=== PATIENT | female | born 1975 | race Caucasian/White ===

== ENCOUNTER 2022-07-20 13:26 | Inpatient (IN) | payer OTHER, SELFPAY ==
--- NOTE | ~2022-07-20 | CT_ITS ---
EXAMINATION: CT angio head neck CLINICAL INFORMATION: Hypertensive. Word finding difficulty. COMPARISON: No relevant prior imaging. TECHNIQUE: [employer] images were obtained. A CT angiogram of the head and neck was performed in the arterial phase after the intravenous administration of 70 mL Omnipaque 350. Pre and delayed postcontrast images of the head were also obtained. 3D images were processed on an independent workstation under concurrent supervision. Arterial stenoses are measured in accordance with NASCET criteria or similar method if applicable. This CT examination was performed using dose optimization techniques as appropriate, including one or more of the following: Automated exposure control, iterative reconstruction, and adjustment of technique factors (mA and/or kVp) according to patient size (this includes techniques or standardized protocols for targeted exams where dose is matched to indication/reason for exam). Fleischner Society criteria for the followup of incidental pulmonary nodules was implemented if appropriate. Total exam dose-length product 2352 mGy-cm FINDINGS: Head: There is no acute intracranial hemorrhage or abnormal extra-axial collection. Postcontrast images reveal no abnormal intracranial mass or enhancement. There is no intracranial mass effect or midline shift. Lateral and third ventricles are normal. No hydrocephalus. Arredondo-white matter differentiation is grossly preserved and there is no evidence of acute territorial infarct. The calvarium and skull base are intact. Mastoid air cells and middle ear cavities are well aerated. No active paranasal sinus disease. CT angiogram neck: The aortic arch apex is normal. Origins of the major aortic branches are widely patent. Common carotid arteries and carotid bifurcations are normal. No stenosis of the extracranial internal carotid arteries. The cervical segments of the vertebral arteries are patent. CT angiogram head: Intracranial internal carotid arteries are patent. The intradural vertebral artery segments and basilar artery are patent. Anterior, middle, and posterior cerebral artery complexes are normal. No intracranial large vessel occlusion. No identifiable aneurysm or high flow vascular lesion. The timing of the contrast injection provides adequate opacification of the dural venous sinuses which are patent. Other: Soft tissues of the neck including the thyroid gland are normal. Lung apices are clear. There is no acute osseous finding. No worrisome lytic or blastic osseous lesion. CT/CT angio head neck IMPRESSION: Normal CT angiogram of the head and neck. No stenosis of the cervical carotid or vertebral arteries. No intracranial large vessel occlusion. No evidence of acute territorial infarct or hemorrhage. No abnormal intracranial mass or enhancement.
--- NOTE | 2022-07-20 13:36 | ED.NEUROSD ---
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 At this time, patient states that the numbness in the right upper extremity that she had has completely resolved and now states that she is having some numbness in the left upper extremity and then during the conversation says that she has some left lower extremity numbness at the lateral aspect. She denies any prescription medications and stop taking her diabetic medication a couple of years ago. Related Data Allergies Allergy/AdvReac Type Severity Reaction Status Date / Time Penicillins Allergy Hives Verified 07/20/22 13:51 Sulfa (Sulfonamide Allergy Hives Verified 07/20/22 13:51 Antibiotics) PMFSH Social History Social History Smoked in Last 30 Days: No Use of substances other than those prescribed or required for medical reasons: No Advance Directives: No Advance Directives Information Provided: Yes Physical Exam Vital Signs: Vital Signs: Last Vital Signs Temp 97.8 F 07/20/22 14:15 Pulse 96 07/20/22 18:50 Resp 16 07/20/22 18:50 BP 159/89 H 07/20/22 18:50 Pulse Ox 96 07/20/22 18:50 O2 Del Method Room Air 07/20/22 18:50 BMI result Body Mass Index 25.1 Medications Administered Discontinued Medications Generic Name Dose Route Start Last Admin Trade Name Freq PRN Reason Stop Dose Admin Acetaminophen 975 mg 07/20/22 17:51 07/20/22 18:01 Acetaminophen 325 Mg Tablet PO 07/20/22 17:52 975 mg ONCE ONE Administration Iohexol 100 ml 07/20/22 15:19 07/20/22 15:19 Iohexol 350 Mg/Ml 100 Ml Infus..Btl IV 07/20/22 15:20 70 ml ONCE ONE Administration Labetalol HCl 5 mg 07/20/22 14:04 07/20/22 14:12 Labetalol Hcl 100 Mg/20 Ml Vial IVPUSH 07/20/22 14:05 5 mg ONCE ONE Administration Labetalol HCl 5 mg 07/20/22 17:09 07/20/22 18:01 Labetalol Hcl 100 Mg/20 Ml Vial IVPUSH 07/20/22 17:10 5 mg ONCE ONE Administration Medical Decision Making Medical Decision Making MDM Narrative: 46-year-old female who presents initially as a stroke alert, however given the changing sides of her symptoms I have low clinical suspicion and think that this is likely a component of anxiety/stress as patient reports significant work and home related stress. Of note, she does have risk factors such as diabetes and on initial evaluation by EMS is noted to have elevated blood pressure. We will fully workup medical reasons for her symptoms and that will include brain imaging studies, however very low clinical suspicion for neurologic etiology. I reviewed all investigations, my interpretation is that patient's symptoms were associated with a hypertensive crisis episode as well as hyperglycemia. I discussed all results and plans with the patient, she did receive in respond well to labetalol. Patient's symptoms have completely resolved and she states that she currently has a headache. 1751: I discussed the case with the inpatient hospitalist who accepts admission. Differential Diagnosis Please see the discussion above Consult Healthcare Provider Management of the patient was discussed with: Hospitalist Please see the discussion above Lab Data Please see the discussion above 07/20/22 14:23 07/20/22 14:23 Labs: Lab Results 07/20/22 07/20/22 07/20/22 Range/Units 14:23 14:23 14:23 WBC 10.9 H (4.8-10.8) X10*3/uL RBC 4.10 L (4.20-5.50) X10*6/uL Hgb 11.6 L (12.0-16.0) g/dl Hct 34.5 L (37.0-47.0) % MCV 84.1 (80.0-98.0) fL MCH 28.3 (27.0-33.0) pg MCHC 33.6 (31.0-35.0) g/dl RDW 12.1 (11.0-16.0) % Plt Count 303 (160-400) X10*3/uL MPV 11.3 (9.4-12.3) fL Immature Gran % (Auto) 0.3 (0.0-0.4) % Neut % (Auto) 74.8 H (45-73) % Lymph % (Auto) 19.0 L (20-40) % [place] % (Auto) 5.1 (2-11) % Eos % (Auto) 0.5 (0-4) % Baso % (Auto) 0.3 (0-2) % Lymph # (Auto) 2.1 (1.2-4.9) X10*3/uL [place] # (Auto) 0.6 (0.1-1.2) X10*3/uL Eos # (Auto) 0.1 (0.0-0.4) X10*3/uL Baso # (Auto) 0.0 (0.0-0.2) X10*3/uL Abs Immat Gran (auto) 0.03 (0.00-0.03) X10*3/uL Absolute Neuts (auto) 8.2 (2.0-8.3) x10*3/uL Absolute Nucleated RBC 0.000 (0.0-0.012) X10*3/uL Nucleated RBC % (auto) 0.0 (0.0-0.2) /100WBC PT 10.3 (10.0-13.1) SEC INR 0.9 (0.9-1.1) Sodium 136 (135-145) mmol/L Potassium 4.4 (3.3-5.1) mmol/L Chloride 103 (96-108) mmol/L Carbon Dioxide 23 (22-29) mmol/L Anion Gap 14 (12-20) BUN 38 H (9-16) mg/dL Creatinine 1.38 (0.5-1.4) mg/dL Estim Creat Clear Calc 49.0 Estimated GFR 41 Random Glucose 343 H (60-115) mg/dL Estimat Average Glucose mg/dL Hemoglobin A1c % % Calcium 9.4 (8.4-10.2) mg/dL Total Bilirubin 0.4 (0.0-1.0) mg/dL AST 8 (5-31) U/L ALT 10 (0-31) U/L Alkaline Phosphatase 114 (39-117) U/L Troponin I High Sens (<3.5-17.0) ng/L Total Protein 6.2 L (6.5-8.0) g/dL Albumin 3.3 L (3.5-5.0) g/dL Urine Color Urine Appearance Urine pH (5.0-9.0) Ur Specific [place] (1.005-1.025) Urine Protein (Neg-Trace) mg/dL Urine Glucose (UA) (Negative) mg/dL Urine Ketones (Negative) mg/dL Urine Blood (Negative) Urine Nitrite (Negative) Ur Leukocyte Esterase (Negative) Urine RBC (0-2) /HPF Urine WBC (0-5) /HPF Ur Squamous Epith Cells (0-2) /HPF Urine Bacteria (None Seen) Hyaline Casts (0-2) /LPF Urine Opiates Screen (Not Detect) Urine Fentanyl Screen (Not Detect) Ur Barbiturates Screen (Not Detect) Ur Phencyclidine Scrn (Not Detect) Ur Amphetamines Screen (Not Detect) U Benzodiazepines Scrn (Not Detect) Urine Cocaine Screen (Not Detect) U Marijuana (THC) Screen (Not Detect) 07/20/22 07/20/22 07/20/22 Range/Units 14:23 14:23 16:37 WBC (4.8-10.8) X10*3/uL RBC (4.20-5.50) X10*6/uL Hgb (12.0-16.0) g/dl Hct (37.0-47.0) % MCV (80.0-98.0) fL MCH (27.0-33.0) pg MCHC (31.0-35.0) g/dl RDW (11.0-16.0) % Plt Count (160-400) X10*3/uL MPV (9.4-12.3) fL Immature Gran % (Auto) (0.0-0.4) % Neut % (Auto) (45-73) % Lymph % (Auto) (20-40) % [place] % (Auto) (2-11) % Eos % (Auto) (0-4) % Baso % (Auto) (0-2) % Lymph # (Auto) (1.2-4.9) X10*3/uL [place] # (Auto) (0.1-1.2) X10*3/uL Eos # (Auto) (0.0-0.4) X10*3/uL Baso # (Auto) (0.0-0.2) X10*3/uL Abs Immat Gran (auto) (0.00-0.03) X10*3/uL Absolute Neuts (auto) (2.0-8.3) x10*3/uL Absolute Nucleated RBC (0.0-0.012) X10*3/uL Nucleated RBC % (auto) (0.0-0.2) /100WBC PT (10.0-13.1) SEC INR (0.9-1.1) Sodium (135-145) mmol/L Potassium (3.3-5.1) mmol/L Chloride (96-108) mmol/L Carbon Dioxide (22-29) mmol/L Anion Gap (12-20) BUN (9-16) mg/dL Creatinine (0.5-1.4) mg/dL Estim Creat Clear Calc Estimated GFR Random Glucose (60-115) mg/dL Estimat Average Glucose 338 mg/dL Hemoglobin A1c % 13.4 % Calcium (8.4-10.2) mg/dL Total Bilirubin (0.0-1.0) mg/dL AST (5-31) U/L ALT (0-31) U/L Alkaline Phosphatase (39-117) U/L Troponin I High Sens < 2.7 (<3.5-17.0) ng/L Total Protein (6.5-8.0) g/dL Albumin (3.5-5.0) g/dL Urine Color Yellow Urine Appearance Clear Urine pH 6.0 (5.0-9.0) Ur Specific [place] >= 1.030 H (1.005-1.025) Urine Protein 300 (3+) H (Neg-Trace) mg/dL Urine Glucose (UA) 500 H (Negative) mg/dL Urine Ketones Negative (Negative) mg/dL Urine Blood Trace H (Negative) Urine Nitrite Negative (Negative) Ur Leukocyte Esterase Moderate (2+) H (Negative) Urine RBC 3-5 H (0-2) /HPF Urine WBC >50 H (0-5) /HPF Ur Squamous Epith Cells 6-10 (0-2) /HPF Urine Bacteria 1+ (None Seen) Hyaline Casts 6-10 (0-2) /LPF Urine Opiates Screen (Not Detect) Urine Fentanyl Screen (Not Detect) Ur Barbiturates Screen (Not Detect) Ur Phencyclidine Scrn (Not Detect) Ur Amphetamines Screen (Not Detect) U Benzodiazepines Scrn (Not Detect) Urine Cocaine Screen (Not Detect) U Marijuana (THC) Screen (Not Detect) 07/20/22 Range/Units 16:37 WBC (4.8-10.8) X10*3/uL RBC (4.20-5.50) X10*6/uL Hgb (12.0-16.0) g/dl Hct (37.0-47.0) % MCV (80.0-98.0) fL MCH (27.0-33.0) pg MCHC (31.0-35.0) g/dl RDW (11.0-16.0) % Plt Count (160-400) X10*3/uL MPV (9.4-12.3) fL Immature Gran % (Auto) (0.0-0.4) % Neut % (Auto) (45-73) % Lymph % (Auto) (20-40) % [place] % (Auto) (2-11) % Eos % (Auto) (0-4) % Baso % (Auto) (0-2) % Lymph # (Auto) (1.2-4.9) X10*3/uL [place] # (Auto) (0.1-1.2) X10*3/uL Eos # (Auto) (0.0-0.4) X10*3/uL Baso # (Auto) (0.0-0.2) X10*3/uL Abs Immat Gran (auto) (0.00-0.03) X10*3/uL Absolute Neuts (auto) (2.0-8.3) x10*3/uL Absolute Nucleated RBC (0.0-0.012) X10*3/uL Nucleated RBC % (auto) (0.0-0.2) /100WBC PT (10.0-13.1) SEC INR (0.9-1.1) Sodium (135-145) mmol/L Potassium (3.3-5.1) mmol/L Chloride (96-108) mmol/L Carbon Dioxide (22-29) mmol/L Anion Gap (12-20) BUN (9-16) mg/dL Creatinine (0.5-1.4) mg/dL Estim Creat Clear Calc Estimated GFR Random Glucose (60-115) mg/dL Estimat Average Glucose mg/dL Hemoglobin A1c % % Calcium (8.4-10.2) mg/dL Total Bilirubin (0.0-1.0) mg/dL AST (5-31) U/L ALT (0-31) U/L Alkaline Phosphatase (39-117) U/L Troponin I High Sens (<3.5-17.0) ng/L Total Protein (6.5-8.0) g/dL Albumin (3.5-5.0) g/dL Urine Color Urine Appearance Urine pH (5.0-9.0) Ur Specific [place] (1.005-1.025) Urine Protein (Neg-Trace) mg/dL Urine Glucose (UA) (Negative) mg/dL Urine Ketones (Negative) mg/dL Urine Blood (Negative) Urine Nitrite (Negative) Ur Leukocyte Esterase (Negative) Urine RBC (0-2) /HPF Urine WBC (0-5) /HPF Ur Squamous Epith Cells (0-2) /HPF Urine Bacteria (None Seen) Hyaline Casts (0-2) /LPF Urine Opiates Screen Not Detected (Not Detect) Urine Fentanyl Screen Not Detected (Not Detect) Ur Barbiturates Screen Not Detected (Not Detect) Ur Phencyclidine Scrn Not Detected (Not Detect) Ur Amphetamines Screen Not Detected (Not Detect) U Benzodiazepines Scrn Not Detected (Not Detect) Urine Cocaine Screen Not Detected (Not Detect) U Marijuana (THC) Screen Not Detected (Not Detect) Independent Interpretation Interpretation: Normal sinus rhythm, HR-91, right bundle branch block, [place] within normal limits, QRS-126, QTC 501 Radiology Impression Radiologist Impression: My interpretation is in agreement with radiology's impression Chronic Conditions Patient?s care impacted by: Diabetes and Hypertension NIH Stroke Scale Internal: Initial- Upon Arrival Level of Consciousness: Alert Level of Consciousness Questions: Answers both questions correctly Level of Consciousness Commands: Performs both tasks correctly Best Gaze: Normal Visual: No visual loss Facial Palsy: Normal Motor Arm (Right): No drift Motor Arm (Left): No drift Motor Leg (Right): No drift Motor Leg (Left): No drift Limb Ataxia: Absent Sensory: Normal Best Language: No aphasia Dysarthia: Normal Extinction and Inattention: No abnormality Score: 0 Discharge Plan Discharge Clinical Impression: Hypertensive crisis, Hyperglycemia due to diabetes mellitus, Neurological symptoms Patient Disposition: Admitted As Inpatient
--- NOTE | 2022-07-20 13:41 | ECG_ITS ---
Test Reason : hyperglycemia Blood Pressure : / mmHG Vent. Rate : 091 BPM Atrial Rate : 091 BPM P-R Int : 142 ms QRS Dur : 126 ms QT Int : 408 ms P-R-T Axes : 041 006 -04 degrees QTc Int : 501 ms Normal sinus rhythm Right bundle branch block Inferior infarct , age undetermined Abnormal ECG No previous ECGs available Referred By: Anjali Dooley Electronically Signed By:Jose Lofton
[2022-07-20 13:44] VITALS: BP 174/113; BP 212/111; PULSE 80; PULSE 89; RESP 16; TEMP 37.1; O2SAT 100; BMI 25.1
[2022-07-20] MEDS: Labetalol HCL 100 MG/20 ML VIAL IVPUSH ×2 (14:12→18:01)
[2022-07-20 14:15] VITALS: BP 198/99; PULSE 89; RESP 16; TEMP 36.6; O2SAT 99
[2022-07-20 14:27] LABS: MANUAL DIFF FLAG NO
[2022-07-20 14:32] LABS: Basophils Percent Auto 0.3 % (0-2); Eosinophils Absolute Auto 0.1 X10*3/uL (0.0-0.4); Eosinophils Percent Auto 0.5 % (0-4); Hematocrit 34.5 % (37.0-47.0); Hemoglobin 11.6 g/dl (12.0-16.0); Imm Gran Abs Auto 0.03 X10*3/uL (0.00-0.03); Imm Gran Pct Auto 0.3 % (0.0-0.4); Lymphocytes Absolute Auto 2.1 X10*3/uL (1.2-4.9); Mean Corpuscular HGB Conc 33.6 g/dl (31.0-35.0); Mean Corpuscular Hemoglobin 28.3 pg (27.0-33.0); Mean Corpuscular Volume 84.1 fL (80.0-98.0); Mean Platelet Volume 11.3 fL (9.4-12.3); Monocytes Absolute Auto 0.6 X10*3/uL (0.1-1.2); Monocytes Percent Auto 5.1 % (2-11); Neutrophils Absolute Auto 8.2 x10*3/uL (2.0-8.3); Neutrophils Percent Auto 74.8 % (45-73); Platelet Count 303 X10*3/uL (160-400); Red Cell Distribution Width 12.1 % (11.0-16.0); White Blood Count 10.9 X10*3/uL (4.8-10.8)
[2022-07-20 14:34] LABS: INTERNATIONAL NORM RATIO 0.9 (0.9-1.1); Prothrombin Time 10.3 SEC (10.0-13.1)
[2022-07-20 14:55] LABS: Troponin-I High Sensitivity < 2.7 ng/L (<3.5-17.0)
[2022-07-20 14:56] LABS: Alanine Aminotransferase 10 U/L (0-31); Albumin Level 3.3 g/dL (3.5-5.0); Alkaline Phosphatase 114 U/L (39-117); Anion Gap 14 (12-20); Aspartate Amino Transferase 8 U/L (5-31); Bilirubin Total 0.4 mg/dL (0.0-1.0); Blood Urea Nitrogen 38 mg/dL (9-16); Calcium 9.4 mg/dL (8.4-10.2); Carbon Dioxide 23 mmol/L (22-29); Chloride 103 mmol/L (96-108); Estimated Glomerular Filt Rate 41; Glucose Random 343 mg/dL (60-115); Potassium 4.4 mmol/L (3.3-5.1); Sodium 136 mmol/L (135-145); Total Protein 6.2 g/dL (6.5-8.0)
[2022-07-20 14:57] LABS: Estimated Average Glucose 338 mg/dL; Hemoglobin A1c % 13.4 %
[2022-07-20] MEDS: iohexoL 350 MG/ML 100 ML INFUS..BTL IV (15:19)
[2022-07-20 16:00] VITALS: BP 198/98; PULSE 93; RESP 16; O2SAT 99
[2022-07-20 16:44] LABS: Appearance Urine Clear; Color Urine Yellow; Glucose Urine UA 500 mg/dL (Negative); Leukocyte Esterase Urine Moderate (2+) (Negative); Nitrite Urine Negative (Negative); Specific Gravity - Urine >= 1.030 (1.005-1.025); UMIC TRIGGER UACC YES; Urine Blood Trace (Negative); Urine Ketones Negative (Negative); Urine Protein 300 (3+) mg/dL (Neg-Trace)
[2022-07-20 16:54] LABS: Amphetamine Screen Urine Not Detected (Not Detect); Barbiturates, Urine Not Detected (Not Detect); Benzodiazepines Screen Urine Not Detected (Not Detect); Cannabinoid Screen Urine Not Detected (Not Detect); Cocaine Screen Urine Not Detected (Not Detect); Fentanyl, urine Not Detected (Not Detect); Opiate Screen Urine Not Detected (Not Detect); Phencyclidine Screen Urine Not Detected (Not Detect)
[2022-07-20 16:58] LABS: Bacteria Urine 1+ (None Seen); UACC Culture Trigger YES; WBC Urine >50 /HPF (0-5)
[2022-07-20] MEDS: Acetaminophen 325 MG TABLET 975 MG PO (18:01)
[2022-07-20 18:50] VITALS: BP 159/89; PULSE 96; RESP 16; O2SAT 96
[2022-07-20 19:16] LABS: Glucose, Whole Blood 346 mg/dL (60-115)
[2022-07-20 19:40] LABS: Acetone, serum QL Negative (Negative)
--- NOTE | 2022-07-20 20:03 | PM.IMHP ---
History of Present Illness Date of Service: 07/20/22 Attending physician on admission: Dago Hughes Chief Complaint: confusion, paresthesias 46-year-old female with history of type 2 diabetes noncompliant with medications presented to the ED via EMS earlier today for evaluation of confusion and paresthesias in the bilateral extremities. 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 States she felt foggy. Then developed paresthesias in the right upper extremity without any associated weakness. The symptoms then moved to the left extremities. She denies any visual changes, lightheadedness, gait abnormality, palpitations, shortness of breath, or chest pain. Symptoms have fully resolved at this time. She denies history of similar symptoms. She tells me over the last 3 weeks, she has been ill with an upper respiratory illness with nonproductive cough that has improved. No known sick contacts, fevers, chills, sore throat, congestion, or shortness of breath. She has no history of asthma or COPD. 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 On arrival, patient hypertensive to 212/111, vitals otherwise stable. She was given 2 doses of 5 mg labetalol with improvement to 159/89. However, on exam, patient is again hypertensive to 193/121. She is endorsing headache but denies any focal weakness or paresthesias currently. Denies any chest pain. She has never been diagnosed with hypertension. There is a mild leukocytosis of 10.1. H/H 11.6/34.5%, MCV normal. Creatinine 1.38, baseline unknown. BUN 38. Electrolyte levels normal. Glucose on arrival 343. Hemoglobin A1c 13.4%. Hepatic function normal. Troponin below detectable limits. Urinalysis with 2+ leukocytes, trace blood, positive glucose, 3+ protein, elevated specific gravity. She does have positive urinary sediment and 1+ bacteria. She currently denies any urinary symptoms. Urine tox screen is negative. Head/neck CTA is negative. In the ED, treated with labetalol 5 mg x 2 and acetaminophen 975 mg. Review of Systems Review of Systems: General: No fevers, malaise, unintentional weight loss HEENT: No blurred vision, diplopia. No sore throat, nasal congestion, rhinorrhea, sinus pain, ear pain Cardiovascular: No chest pain, palpitations, or leg edema Respiratory: +cough. No shortness of breath, wheezing GI: No abdominal pain, nausea, vomiting, diarrhea, constipation, melena, hematochezia : No dysuria, hematuria, increased urinary frequency, decreased urinary output MSK: No myalgia, back pain Neuro: No focal weakness. +paresthesias, +headache Skin: No rashes or lesions PMFSH Social History Smoked in Last 30 Days: No Use of substances other than those prescribed or required for medical reasons: No Advance Directives: No Advance Directives Information Provided: Yes Meds Allergies Allergy/AdvReac Type Severity Reaction Status Date / Time Penicillins Allergy Hives Verified 07/20/22 13:51 Sulfa (Sulfonamide Allergy Hives Verified 07/20/22 13:51 Antibiotics) Active Medications: Current Medications Amlodipine Besylate (Amlodipine Besylate 5 Mg Tablet) 5 mg PO DAILY SARAH; Protocol Lisinopril (Lisinopril 10 Mg Tablet) 10 mg PO DAILY SARAH; Protocol Pharmacy Consult (Consult Rx Perform Med Rec) 1 each MISCELLANE ONCE PRN PRN Reason: Consult order Home Medications Medication Instructions Recorded Confirmed Last Taken Type ascorbic acid (vitamin C) 500 mg 500 mg PO BEDTIME 07/20/22 07/20/22 07/19/22 History chewable tablet (Vitamin C) cetirizine 10 mg tablet (Zyrtec) 10 mg PO BEDTIME 07/20/22 07/20/22 07/19/22 History cholecalciferol (vitamin D3) 50 50 mcg PO BEDTIME 07/20/22 07/20/22 07/19/22 History mcg (2,000 unit) tablet (Vitamin D3) cyanocobalamin (vitamin B-12) 1,000 mcg PO BEDTIME 07/20/22 07/20/22 07/19/22 History 1,000 mcg tablet Physical Exam Vital Signs and Narrative: Vital Signs: Last Vital Signs Temp 97.8 F 07/20/22 14:15 Pulse 96 07/20/22 18:50 Resp 16 07/20/22 18:50 BP 159/89 H 07/20/22 18:50 Pulse Ox 96 07/20/22 18:50 O2 Del Method Room Air 07/20/22 18:50 BMI result Body Mass Index 25.1 Constitutional - Awake and Alert, No apparent distress Eyes - PERRLA, EOMI. No papilledema Cardiovascular - S1S2, RRR, No edema Respiratory - Normal lung expansion, Normal respiratory effort, No respiratory distress, wheeze auscultated during cough only, otherwise CTA Gastrointestinal - NT / ND; +BS; No rebound or guarding Extremities - no calf tenderness bilaterally, no swelling Skin - Warm/Dry Neurological - Alert & oriented x3, CN II-XII in tact, 5/5 strength BUE and BLE Psychological - Appropriate affect Results Labs 07/20/22 14:23 07/20/22 14: Labs: Laboratory Results - last 24 hr 07/20/22 07/20/22 07/20/22 14: 14: 14:23 MCV 84.1 MCH 28.3 MCHC 33.6 RDW 12.1 Plt Count 303 MPV 11.3 Immature Gran % (Auto) 0.3 Neut % (Auto) 74.8 H Lymph % (Auto) 19.0 L [place] % (Auto) 5.1 Eos % (Auto) 0.5 Baso % (Auto) 0.3 Lymph # (Auto) 2.1 [place] # (Auto) 0.6 Eos # (Auto) 0.1 Baso # (Auto) 0.0 Abs Immat Gran (auto) 0.03 Absolute Neuts (auto) 8.2 Absolute Nucleated RBC 0.000 Nucleated RBC % (auto) 0.0 PT 10.3 INR 0.9 Anion Gap 14 Estim Creat Clear Calc 49.0 Estimated GFR 41 POC Glucose Random Glucose 343 H Estimat Average Glucose Hemoglobin A1c % Calcium 9.4 Total Bilirubin 0.4 AST 8 ALT 10 Alkaline Phosphatase 114 Troponin I High Sens Total Protein 6.2 L Albumin 3.3 L Urine Color Urine Appearance Urine pH Ur Specific [place] Urine Protein Urine Glucose (UA) Urine Ketones Urine Blood Urine Nitrite Ur Leukocyte Esterase Urine RBC Urine WBC Ur Squamous Epith Cells Urine Bacteria Hyaline Casts Urine Opiates Screen Urine Fentanyl Screen Ur Barbiturates Screen Ur Phencyclidine Scrn Ur Amphetamines Screen U Benzodiazepines Scrn Urine Cocaine Screen U Marijuana (THC) Screen Acetone, Qual Negative 07/20/22 07/20/22 07/20/22:23 14:23 16:37 MCV MCH MCHC RDW Plt Count MPV Immature Gran % (Auto) Neut % (Auto) Lymph % (Auto) [place] % (Auto) Eos % (Auto) Baso % (Auto) Lymph # (Auto) [place] # (Auto) Eos # (Auto) Baso # (Auto) Abs Immat Gran (auto) Absolute Neuts (auto) Absolute Nucleated RBC Nucleated RBC % (auto) PT INR Anion Gap Estim Creat Clear Calc Estimated GFR POC Glucose Random Glucose Estimat Average Glucose 338 Hemoglobin A1c % 13.4 Calcium Total Bilirubin AST ALT Alkaline Phosphatase Troponin I High Sens < 2.7 Total Protein Albumin Urine Color Yellow Urine Appearance Clear Urine pH 6.0 Ur Specific [place] >= 1.030 H Urine Protein 300 (3+) H Urine Glucose (UA) 500 H Urine Ketones Negative Urine Blood Trace H Urine Nitrite Negative Ur Leukocyte Esterase Moderate (2+) H Urine RBC 3-5 H Urine WBC >50 H Ur Squamous Epith Cells 6-10 Urine Bacteria 1+ Hyaline Casts 6-10 Urine Opiates Screen Urine Fentanyl Screen Ur Barbiturates Screen Ur Phencyclidine Scrn Ur Amphetamines Screen U Benzodiazepines Scrn Urine Cocaine Screen U Marijuana (THC) Screen Acetone, Qual 07/20/22 07/20/22 16:37 19:12 MCV MCH MCHC RDW Plt Count MPV Immature Gran % (Auto) Neut % (Auto) Lymph % (Auto) [place] % (Auto) Eos % (Auto) Baso % (Auto) Lymph # (Auto) [place] # (Auto) Eos # (Auto) Baso # (Auto) Abs Immat Gran (auto) Absolute Neuts (auto) Absolute Nucleated RBC Nucleated RBC % (auto) PT INR Anion Gap Estim Creat Clear Calc Estimated GFR POC Glucose 346 H Random Glucose Estimat Average Glucose Hemoglobin A1c % Calcium Total Bilirubin AST ALT Alkaline Phosphatase Troponin I High Sens Total Protein Albumin Urine Color Urine Appearance Urine pH Ur Specific [place] Urine Protein Urine Glucose (UA) Urine Ketones Urine Blood Urine Nitrite Ur Leukocyte Esterase Urine RBC Urine WBC Ur Squamous Epith Cells Urine Bacteria Hyaline Casts Urine Opiates Screen Not Detected Urine Fentanyl Screen Not Detected Ur Barbiturates Screen Not Detected Ur Phencyclidine Scrn Not Detected Ur Amphetamines Screen Not Detected U Benzodiazepines Scrn Not Detected Urine Cocaine Screen Not Detected U Marijuana (THC) Screen Not Detected Acetone, Qual Imaging Radiologist's Impressions: Impressions Head/Neck CTA 07/20/22 15:19 IMPRESSION: Normal CT angiogram of the head and neck. No stenosis of the cervical carotid or vertebral arteries. No intracranial large vessel occlusion. No evidence of acute territorial infarct or hemorrhage. No abnormal intracranial mass or enhancement. Assessment and Plan (1) Hypertensive emergency: Status: Acute (2) Hyperglycemia due to diabetes mellitus: Status: Acute Plan 46-year-old female with history of type 2 diabetes noncompliant with medications admitted for hypertensive emergency #Hypertensive emergency with hypertensive encephalopathy -Nonspecific neuro symptoms with paresthesias of the right upper extremity followed by left upper and lower extremity have resolved. Head/neck CTA negative. No focal neuro deficits on exam -give additional 10 mg labetalol IV push -give 1 in nitropaste, removed with SBP <160 -Initiate and continue lisinopril 10mg (has proteinuria), and amlodipine 5mg -Monitor on telemetry -Monitor mentation, neuro checks q4h -cardiac diet #Uncontrolled type 2 diabetes with hyperglycemia -POC glucose -Diabetic diet -give 5 units Humalog, continue Humalog on sliding scale -initiate Lantus 10 units nightly #Post-viral bronchitis -improving symptoms ongoing 3 weeks -Lungs CTA except for wheeze with cough -tessalon, robitussin prn -albuterol prn -steroids not indicated at this time #Proteiniuria -likely 2/2 uncontrolled diabetes and hypertension -initiate lisinopril as above -outpatient follow-up # asymptomatic bacteruria -UA with 2+ leuks, trace blood, urinary sediment, and 1+ bacteria -hold on antibiotics at this time. Await culture DVT prophylaxis-SCPs Full code Patient requires inpatient stay of at least 2 midnights for management of a hypertensive emergency with hypertensive encephalopathy requiring IV antihypertensives, close neurologic monitoring. Time Spent With Patient Time: Total time managing care of this patient today ____ minutes. Quality Stroke Does the patient have a stroke diagnosis?: No VTE Prior VTE?: No VTE Risk Level:: Medical - moderate - high VTE Device Contraindication: N/A - Device Ordered VTE Drug Contraindication: Treatment Not Indicated
[2022-07-20] MEDS: Insulin Glargine,Hum.rec.anlog 100 UNIT/ML 10 ML VIAL 10 UNIT SUBCUT (21:00)
[2022-07-20] MEDS: Insulin Lispro 100 UNIT/ML 3 ML VIAL SUBCUT ×2 (21:00→21:46)
[2022-07-20] MEDS: Labetalol HCL 100 MG/20 ML VIAL 10 MG IVPUSH (21:00)
[2022-07-20] MEDS: 0.9 % Sodium Chloride Flush 3 ML SYRINGE IVFLUSH (21:04)
[2022-07-20] MEDS: Cholecalciferol (Vitamin D3) 25 MCG TABLET 50 MCG PO (21:43)
[2022-07-20] MEDS: Ascorbic Acid 500 MG TABLET PO (21:44)
[2022-07-20] MEDS: Benzonatate 100 MG CAPSULE PO (21:44)
[2022-07-20] MEDS: Cyanocobalamin (Vitamin B-12) 1,000 MCG TABLET 1000 MCG PO (21:45)
[2022-07-20] MEDS: Loratadine 10 MG TABLET PO (21:45)
[2022-07-20] MEDS: guaiFENesin 200 MG/10 ML 10 ML LIQUID PO (21:46)
[2022-07-20] MEDS: lisinopriL 10 MG TABLET PO (21:59)
[2022-07-20] MEDS: amLODIPine Besylate 5 MG TABLET PO (21:59)
[2022-07-20 22:06] VITALS: BP 168/88; PULSE 91; RESP 12; TEMP 37
[2022-07-20 22:18] VITALS: BP 145/68; PULSE 100; RESP 18; TEMP 37.3; O2SAT 95
--- NOTE | 2022-07-20 22:34 | MHC.CM.PN ---
CM met with admitted patient with bed assignment pending. A&Ox4. Lives with and 17 year old daughter. Unemployed. Pt has hx of medication non-compliance. A1C 13.4. had meds ordered at some time, not taking any. NO PCP. Will need appointment prior to discharge. Pt is agreeable. Admitted with hypertension. No DME/services. Pfizer x1. HCP reviewed, completed and signed. Copies given. Uploaded into [employer] and [facility] [employer]. HCP/ Neel Ibrahim ([phone]). D/C plan: Home without services. Pt will need PCP appointment scheduled. Pt has HX non-compliance. will transport home.
[2022-07-21] VITALS (12 sets, daily range): BP systolic 111–168; BP diastolic 67–88; PULSE 88–99; RESP 14–24; TEMP 36.1–37.2; O2SAT 94–98; BMI 26.7
--- NOTE | 2022-07-21 01:09 | PC.NURSE ---
Patient received in bed with no signs of pain at this time patient vitals are stable at this time patient was able to tolerate all medications with no issues patient accu check was 346 patient was given coverage patient stated she was not in pain patient was encuraged to reach out to staff if any issues should occur patient will continue to be monitored for safety
--- NOTE | 2022-07-21 03:21 | PC.NURSE ---
Patient in bed with eyes closed patient showing no distress at this time patient will continue to be monitored for safety Patient will continue wait for admission beds
[2022-07-21 06:05] LABS: MANUAL DIFF FLAG NO
[2022-07-21 06:09] LABS: Basophils Percent Auto 0.3 % (0-2); Eosinophils Percent Auto 0.2 % (0-4); Hematocrit 31.5 % (37.0-47.0); Hemoglobin 10.6 g/dl (12.0-16.0); Imm Gran Abs Auto 0.05 X10*3/uL (0.00-0.03); Imm Gran Pct Auto 0.3 % (0.0-0.4); Lymphocytes Absolute Auto 1.6 X10*3/uL (1.2-4.9); Lymphocytes Percent Auto 9.9 % (20-40); Mean Corpuscular HGB Conc 33.7 g/dl (31.0-35.0); Mean Corpuscular Hemoglobin 28.6 pg (27.0-33.0); Mean Corpuscular Volume 84.9 fL (80.0-98.0); Mean Platelet Volume 11.2 fL (9.4-12.3); Monocytes Absolute Auto 0.9 X10*3/uL (0.1-1.2); Monocytes Percent Auto 5.3 % (2-11); Neutrophils Absolute Auto 13.4 x10*3/uL (2.0-8.3); Platelet Count 311 X10*3/uL (160-400); Red Blood Count 3.71 X10*6/uL (4.20-5.50); Red Cell Distribution Width 12.2 % (11.0-16.0)
[2022-07-21 06:23] LABS: Anion Gap 14 (12-20); Blood Urea Nitrogen 34 mg/dL (9-16); Calcium 9.4 mg/dL (8.4-10.2); Carbon Dioxide 23 mmol/L (22-29); Chloride 105 mmol/L (96-108); Creatinine Clr Calc Pharmacy 75.1; Estimated Glomerular Filt Rate > 60; Glucose Random 127 mg/dL (60-115); Potassium 3.9 mmol/L (3.3-5.1); Sodium 138 mmol/L (135-145)
[2022-07-21 07:15] LABS: Glucose, Whole Blood 168 mg/dL (60-115)
[2022-07-21] MEDS: Insulin Lispro 100 UNIT/ML 3 ML VIAL SUBCUT ×4 (07:59→22:00)
[2022-07-21] MEDS: lisinopriL 10 MG TABLET PO (08:04)
[2022-07-21] MEDS: amLODIPine Besylate 5 MG TABLET PO (08:04)
[2022-07-21] MEDS: 0.9 % Sodium Chloride Flush 3 ML SYRINGE IVFLUSH ×2 (08:04→22:04)
[2022-07-21 11:12] LABS: Glucose, Whole Blood 195 mg/dL (60-115)
[2022-07-21] MEDS: guaiFENesin 200 MG/10 ML 10 ML LIQUID PO (11:18)
[2022-07-21] MEDS: Acetaminophen 325 MG TABLET 650 MG PO (11:18)
[2022-07-21] MEDS: Benzonatate 100 MG CAPSULE PO (11:18)
[2022-07-21 13:35] LABS: Glucose, Whole Blood 102 mg/dL (60-115)
--- NOTE | 2022-07-21 15:10 | HO.PM.IMPN ---
Subjective Subjective Date of Service: 07/21/22 Interval History: Seen and evaluated this morning Feels much better but overall weak BP better controlled No more numbness or confusion No other overnight events Review of Systems Review of Systems: Yes all other systems are reviewed and are negative Physical Exam Vital Signs: Vital Signs: Last Vital Signs Temp 98.9 F 07/21/22 14:50 Pulse 92 07/21/22 14:50 Resp 23 H 07/21/22 14:50 BP 129/69 07/21/22 14:50 Pulse Ox 96 07/21/22 14:50 O2 Del Method Room Air 07/21/22 14:50 BMI result Body Mass Index 25.1 Const: Other: Constitutional : Awake, interactive, not in distress Neck : Normal inspection, Supple Cardiovascular : RRR, no JVP, no lower extremity edema Respiratory : good bilateral air entry, no crackles, wheezes or rhonchi Gastrointestinal: soft, lax, Normal bowel sounds, Non tender Skin : Warm, Dry Neurological : Alert & oriented x3, No focal deficit Objective Data Active Medications Acetaminophen (Acetaminophen 325 Mg Tablet) 650 mg PO Q6H PRN PRN Reason: Pain, Mild (Pain Scale 1-3) Last Admin: 07/21/22 11:18 Dose: 650 mg Documented By: ELIOT Albuterol Sulfate (Albuterol Sulfate 90 Mcg 8 Gm Inhaler) 2 puff INHALE RQ4H PRN PRN Reason: cough, wheezing, sob Amlodipine Besylate (Amlodipine Besylate 5 Mg Tablet) 5 mg PO DAILY [facility]; Protocol Last Admin: 07/21/22 08:04 Dose: 5 mg Documented By: ELIOT Ascorbic Acid (Ascorbic Acid 500 Mg Tablet) 500 mg PO BEDTIME [facility] Last Admin: 07/20/22 21:44 Dose: 500 mg Documented By: INOCENCIO Benzonatate (Benzonatate 100 Mg Capsule) 100 mg PO TID PRN PRN Reason: Cough Last Admin: 07/21/22 11:18 Dose: 100 mg Documented By: ELIOT Cyanocobalamin (Cyanocobalamin (Vitamin B-12) 1,000 Mcg Tablet) 1,000 mcg PO BEDTIME [facility] Last Admin: 07/20/22 21:45 Dose: 1,000 mcg Documented By: INOCENCIO Docusate Sodium (Docusate Sodium 100 Mg Capsule) 100 mg PO DAILY PRN PRN Reason: Constipation Glucose (Glucose Gel 15 Gm Gel..Gram.) 15 gm PO Q15M PRN; Protocol PRN Reason: per Hypoglycemia Standing Ord. Guaifenesin (Guaifenesin 200 Mg/10 Ml 10 Ml Liquid) 10 ml PO Q4H PRN PRN Reason: Cough Last Admin: 07/21/22 11:18 Dose: 10 ml Documented By: ELIOT Dextrose (D10) 250 mls @ 750 mls/hr IV Q15M PRN; Protocol PRN Reason: per Hypoglycemia Standing Ord. Insulin Glargine (Insulin Glargine,Hum.Rec.Anlog 100 Unit/Ml 10 Ml Vial) 10 unit SUBCUT BEDTIME [facility] Last Admin: 07/20/22 21:00 Dose: 10 unit Documented By: INOCENCIO Comments: . Insulin Human Lispro (Insulin Lispro 100 Unit/Ml 3 Ml Vial) 0 unit SUBCUT QIDACHS [facility]; Protocol Last Admin: 07/21/22 11:19 Dose: 2 unit Documented By: ELIOT Lisinopril (Lisinopril 10 Mg Tablet) 10 mg PO DAILY [facility]; Protocol Last Admin: 07/21/22 08:04 Dose: 10 mg Documented By: ELIOT Loratadine (Loratadine 10 Mg Tablet) 10 mg PO BEDTIME [facility] Last Admin: 07/20/22 21:45 Dose: 10 mg Documented By: INOCENCIO Ondansetron HCl (Ondansetron Hcl 4 Mg/2 Ml Vial) 4 mg IVPUSH Q8H PRN PRN Reason: Nausea and Vomiting Pharmacy Consult (Consult Rx Perform Med Rec) 1 each MISCELLANE ONCE PRN PRN Reason: Consult order Sodium Chloride (0.9 % Sodium Chloride Flush 3 Ml Syringe) 3 ml IVFLUSH QSHIFT [facility] Last Admin: 07/21/22 08:04 Dose: 3 ml Documented By: ELIOT Vitamin D (Cholecalciferol (Vitamin D3) 25 Mcg Tablet) 50 mcg PO BEDTIME [facility] Last Admin: 07/20/22 21:43 Dose: 50 mcg Documented By: INOCENCIO Labs 07/21/22 06:01 07/21/22 06:01 Labs: Laboratory Results - last 24 hr 07/20/22 07/20/2223 14:23 16:37 16:37 MCV MCH MCHC RDW Plt Count MPV Immature Gran % (Auto) Neut % (Auto) Lymph % (Auto) Warren % (Auto) Eos % (Auto) Baso % (Auto) Lymph # (Auto) [place] # (Auto) Eos # (Auto) Baso # (Auto) Abs Immat Gran (auto) Absolute Neuts (auto) Absolute Nucleated RBC Nucleated RBC % (auto) Anion Gap Estim Creat Clear Calc Estimated GFR POC Glucose Random Glucose Calcium Urine Color Yellow Urine Appearance Clear Urine pH 6.0 Ur Specific [place] >= 1.030 H Urine Protein 300 (3+) H Urine Glucose (UA) 500 H Urine Ketones Negative Urine Blood Trace H Urine Nitrite Negative Ur Leukocyte Esterase Moderate (2+) H Urine RBC 3-5 H Urine WBC >50 H Ur Squamous Epith Cells 6-10 Urine Bacteria 1+ Hyaline Casts 6-10 Urine Opiates Screen Not Detected Urine Fentanyl Screen Not Detected Ur Barbiturates Screen Not Detected Ur Phencyclidine Scrn Not Detected Ur Amphetamines Screen Not Detected U Benzodiazepines Scrn Not Detected Urine Cocaine Screen Not Detected U Marijuana (THC) Screen Not Detected Acetone, Qual Negative 07/20/22 07/21/22 07/21/22 19:12 06:01 06:01 MCV 84.9 MCH 28.6 MCHC 33.7 RDW 12.2 Plt Count 311 MPV 11.2 Immature Gran % (Auto) 0.3 Neut % (Auto) 84.0 H Lymph % (Auto) 9.9 L [place] % (Auto) 5.3 Eos % (Auto) 0.2 Baso % (Auto) 0.3 Lymph # (Auto) 1.6 Warren # (Auto) 0.9 Eos # (Auto) 0.0 Baso # (Auto) 0.0 Abs Immat Gran (auto) 0.05 H Absolute Neuts (auto) 13.4 H Absolute Nucleated RBC 0.000 Nucleated RBC % (auto) 0.0 Anion Gap 14 Estim Creat Clear Calc 75.1 Estimated GFR > 60 POC Glucose 346 H Random Glucose 127 H Calcium 9.4 Urine Color Urine Appearance Urine pH Ur Specific [place] Urine Protein Urine Glucose (UA) Urine Ketones Urine Blood Urine Nitrite Ur Leukocyte Esterase Urine RBC Urine WBC Ur Squamous Epith Cells Urine Bacteria Hyaline Casts Urine Opiates Screen Urine Fentanyl Screen Ur Barbiturates Screen Ur Phencyclidine Scrn Ur Amphetamines Screen U Benzodiazepines Scrn Urine Cocaine Screen U Marijuana (THC) Screen Acetone, Qual 07/21/22 07/21/22 07/21/22 07:08 11:08 13:32 MCV MCH MCHC RDW Plt Count MPV Immature Gran % (Auto) Neut % (Auto) Lymph % (Auto) Warren % (Auto) Eos % (Auto) Baso % (Auto) Lymph # (Auto) [place] # (Auto) Eos # (Auto) Baso # (Auto) Abs Immat Gran (auto) Absolute Neuts (auto) Absolute Nucleated RBC Nucleated RBC % (auto) Anion Gap Estim Creat Clear Calc Estimated GFR POC Glucose 168 H 195 H 102 Random Glucose Calcium Urine Color Urine Appearance Urine pH Ur Specific [place] Urine Protein Urine Glucose (UA) Urine Ketones Urine Blood Urine Nitrite Ur Leukocyte Esterase Urine RBC Urine WBC Ur Squamous Epith Cells Urine Bacteria Hyaline Casts Urine Opiates Screen Urine Fentanyl Screen Ur Barbiturates Screen Ur Phencyclidine Scrn Ur Amphetamines Screen U Benzodiazepines Scrn Urine Cocaine Screen U Marijuana (THC) Screen Acetone, Qual Microbiology Microbiology Results: Microbiology 07/20/22 17:01 Urine Culture - Preliminary Urine clean catch - Urine moise top Culture too young to evaluate. Assessment and Plan (1) Hypertensive emergency: Status: Acute (2) Hypertensive crisis: Status: Acute (3) Hyperglycemia due to diabetes mellitus: Status: Acute Plan 46-year-old female with history of type 2 diabetes noncompliant with medications admitted for hypertensive emergency #Hypertensive emergency with hypertensive encephalopathy resolved Nonspecific neuro symptoms Head/neck CTA negative. continue lisinopril 10mg amlodipine 5mg Follow BMP Monitor BP for any adjustments of meds #Uncontrolled type 2 diabetes with hyperglycemia HbA1c 13.4 Stopped taking any diabetes meds 3 years ago Diabetic diet continue Humalog on sliding scale Lantus 10 units nightly #Post-viral bronchitis improving symptoms ongoing 3 weeks Lungs CTA except for wheeze with cough tessalon, robitussin prn albuterol prn #Proteiniuria likely 2/2 uncontrolled diabetes and hypertension initiate lisinopril as above outpatient follow-up # Leukocytosis Could be reactive or related to possibe UTI Empiric Ceftriaxone Await culture DVT prophylaxis SCDs Full code Patient requires inpatient stay of at overnight for management of a hypertensive emergency with hypertensive encephalopathy requiring IV antihypertensives, close neurologic monitoring. Time Spent With Patient Time: Total time managing care of this patient today ____ minutes. Quality Stroke Does the patient have a stroke diagnosis?: No VTE Prior VTE?: No VTE Risk Level:: Medical - moderate - high VTE Device Contraindication: N/A - Device Ordered VTE Drug Contraindication: Treatment Not Indicated
[2022-07-21 16:05] LABS: Glucose, Whole Blood 267 mg/dL (60-115)
[2022-07-21 18:19] LABS: Glucose, Whole Blood 219 mg/dL (60-115)
[2022-07-21] MEDS: cefTRIAXone sodium 1 GM in 0.9 % Sodium Chloride 50 ML IV (18:25)
[2022-07-21 20:01] LABS: Glucose, Whole Blood 176 mg/dL (60-115)
[2022-07-21] MEDS: Ascorbic Acid 500 MG TABLET PO (21:59)
[2022-07-21] MEDS: Loratadine 10 MG TABLET PO (21:59)
[2022-07-21] MEDS: Cholecalciferol (Vitamin D3) 25 MCG TABLET 50 MCG PO (21:59)
[2022-07-21] MEDS: Cyanocobalamin (Vitamin B-12) 1,000 MCG TABLET 1000 MCG PO (21:59)
[2022-07-21] MEDS: Insulin Glargine,Hum.rec.anlog 100 UNIT/ML 10 ML VIAL 10 UNIT SUBCUT (22:01)
[2022-07-22 03:02] VITALS: BP 145/77; PULSE 87; RESP 16; TEMP 36.4; O2SAT 94
[2022-07-22 07:06] LABS: Anion Gap 12 (12-20); Blood Urea Nitrogen 26 mg/dL (9-16); Calcium 9.4 mg/dL (8.4-10.2); Carbon Dioxide 25 mmol/L (22-29); Chloride 106 mmol/L (96-108); Creatinine Clr Calc Pharmacy 83.7; Estimated Glomerular Filt Rate > 60; Glucose Random 166 mg/dL (60-115); Potassium 4.5 mmol/L (3.3-5.1); Sodium 138 mmol/L (135-145)
[2022-07-22 07:48] VITALS: BP 132/69; PULSE 88; RESP 19; TEMP 36.8; O2SAT 96
[2022-07-22 08:05] LABS: Glucose, Whole Blood 164 mg/dL (60-115)
[2022-07-22] MEDS: Insulin Lispro 100 UNIT/ML 3 ML VIAL SUBCUT ×2 (08:12→11:29)
[2022-07-22] MEDS: 0.9 % Sodium Chloride Flush 3 ML SYRINGE IVFLUSH (08:12)
[2022-07-22] MEDS: amLODIPine Besylate 5 MG TABLET PO (08:12)
[2022-07-22] MEDS: lisinopriL 10 MG TABLET PO (08:12)
[2022-07-22 11:19] LABS: Glucose, Whole Blood 187 mg/dL (60-115)
[2022-07-22 12:00] VITALS: BP 137/75; PULSE 98; RESP 19; TEMP 36.7; O2SAT 96
--- NOTE | 2022-07-22 12:13 | P.DS_ITS ---
DS: Providers Provider Date of Service: 07/22/22 Date of admission: 07/20/22 20:00 Primary care physician: None Physician DS: Diagnosis Discharge Diagnosis (1) Hypertensive emergency: Status: Acute (2) Hypertensive crisis: Status: Acute (3) Hyperglycemia due to diabetes mellitus: Status: Acute DS: Summary Hospital Course Hospital Course: from initial hpi: 46-year-old female with history of type 2 diabetes noncompliant with medications presented to the ED via EMS earlier today for evaluation of confusion and paresthesias in the bilateral extremities.? She states around months time, she was working and was unable to perform math problems which she would routinely complete on a daily basis.? States she felt foggy.? Then developed paresthesias in the right upper extremity without any associated weakness.? The symptoms then moved to the left extremities.? She denies any visual changes, lightheadedness, gait abnormality, palpitations, shortness of breath, or chest pain.? Symptoms have fully resolved at this time.? She denies history of similar symptoms.? She tells me over the last 3 weeks, she has been ill with an upper respiratory illness with nonproductive cough that has improved.? No known sick contacts, fevers, chills, sore throat, congestion, or shortness of breath.? She has no history of asthma or COPD.? 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 On arrival, patient hypertensive to 212/111, vitals otherwise stable.? She was given 2 doses of 5 mg labetalol with improvement to 159/89.? However, on exam, patient is again hypertensive to 193/121.? She is endorsing headache but denies any focal weakness or paresthesias currently.? Denies any chest pain.? She has never been diagnosed with hypertension.? There is a mild leukocytosis of 10.1.? H/H 11.6/34.5%, MCV normal.? Creatinine 1.38, baseline unknown.? BUN 38.? Electrolyte levels normal.? Glucose on arrival 343.? Hemoglobin A1c 13.4%.? Hepatic function normal.? Troponin below detectable limits.? Urinalysis with 2+ leukocytes, trace blood, positive glucose, 3+ protein, elevated specific gravity.? She does have positive urinary sediment and 1+ bacteria.? She currently denies any urinary symptoms.? Urine tox screen is negative.? Head/neck CTA is negative.? In the ED, treated with labetalol 5 mg x 2 and acetaminophen 975 mg. hospital course: Patient was admitted for acute hypertensive emergency with hypertensive encephalopathy. CTA head and neck was negative. She was started on amlodipine 5 mg and lisinopril 10 mg with significant improvement in blood pressure. Her symptoms resolved. For uncontrolled diabetes type 2 with hyperglycemia her hemoglobin A1c was 13.4 this is due to noncompliance with medications. She is restarted on insulin and should follow up with primary care as outpatient. Patient noted to have proteinuria likely due to diabetes and hypertension was initiated on lisinopril. Patient is feeling better will be discharged home. Time Spent with Patient Time attestation: Total time managing care of this patient today ____ minutes. Discharge coordination time: Greater than 30 minutes Quality: Safe Use of Opioids Does Pt have an Active Cancer Diagnosis on the Problem List?: No Quality: Stroke Does the patient have a stroke diagnosis?: No Physical Exam Vital Signs: Vital Signs: Last Vital Signs Temp 98.0 F 07/22/22 12:00 Pulse 98 07/22/22 12:00 Resp 19 07/22/22 12:00 BP 137/75 07/22/22 12:00 Pulse Ox 96 07/22/22 12:00 O2 Del Method Room Air 07/22/22 12:00 BMI result Body Mass Index 26.7 General: AO X 3, no acute distress Resp: CTA bilateral, no accessory muscles used CVS: S1,S2,RRR GI: soft, non tender, non distended Neuro: motor grossly intact, alert Psych: appropriate affect, appropriate insight DS: Data Data Completed and Pending Labs on day of discharge: Laboratory Results - last 24 hr 07/21/22 07/21/22 07/21/22 13:32 16:02 18:15 Sodium Potassium Chloride Carbon Dioxide Anion Gap BUN Creatinine Estim Creat Clear Calc Estimated GFR POC Glucose 102 267 H 219 H Random Glucose Calcium 07/21/22 07/22/22 07/22/22 19:57 06:29 07:47 Sodium 138 Potassium 4.5 Chloride 106 Carbon Dioxide 25 Anion Gap 12 BUN 26 H Creatinine 0.89 Estim Creat Clear Calc 83.7 Estimated GFR > 60 POC Glucose 176 H 164 H Random Glucose 166 H Calcium 9.4 07/22/22 11:13 Sodium Potassium Chloride Carbon Dioxide Anion Gap BUN Creatinine Estim Creat Clear Calc Estimated GFR POC Glucose 187 H Random Glucose Calcium Preliminary micro results at discharge 07/20/22 17:01 Urine Culture - Preliminary Urine clean catch - Urine moise top Culture too young to evaluate. Discharge Plan Discharge Anticipated Discharge Date/Time: 07/22/22 12:09 Patient Disposition: Home, Self-Care Discharge Diagnosis: hypertensive emergency Referrals: Physician,None [Primary Care Provider] - 1 Week Discharge Medications: New amlodipine 5 mg Tablet 5 mg PO DAILY Qty: 30 0RF Protocol: Hold for SBP< HOLD for SBP < : 90 lisinopril 10 mg Tablet 10 mg PO DAILY Qty: 30 0RF Protocol: Hold for SBP< HOLD for SBP < : 90 (DME) FreeStyle Lite Strips Strip Qty: 100 0RF Rx Instructions: Test four times a day or as directed. (DME) blood-glucose meter [FreeStyle Lite Meter] Kit Qty: 1 0RF Rx Instructions: As Directed alcohol swabs Pads, Medicated 1 pad TOPICAL QIDACHS Qty: 100 0RF Rx Instructions: Use four times a day or as directed. insulin lispro [Humalog KwikPen Insulin] 100 unit/mL insulin pen 0 sliding scale dose SUBCUT QIDACHS Qty: 15 0RF Rx Instructions: Blood Sugar: <150 - 0 units 151-200 - 2 units 201-250 - 4 units 251-300 - 6 units 301-350 - 8 units >350 - 10 units insulin glargine [Lantus Solostar U-100 Insulin] 100 unit/mL (3 mL) insulin pen 10 unit SUBCUT BEDTIME Qty: 15 0RF (DME) pen needle, diabetic 32 gauge x 1/4 needle Qty: 100 0RF Rx Instructions: Use four times a day or as directed. (DME) lancets [FreeStyle Lancets] 28 gauge misc Qty: 100 0RF Rx Instructions: Test four times a day or as directed. Continued cetirizine [Zyrtec] 10 mg Tablet 10 mg PO BEDTIME cyanocobalamin (vitamin B-12) 1,000 mcg Tablet 1,000 mcg PO BEDTIME ascorbic acid (vitamin C) [Vitamin C] 500 mg Tablet,Chewable 500 mg PO BEDTIME cholecalciferol (vitamin D3) [Vitamin D3] 50 mcg (2,000 unit) Tablet 50 mcg PO BEDTIME Discharge Orders: Discharge Order (Routine); Ordered 07/22/22 Ordered By: Corey Burdick Diet: Diabetic diet Activity on Discharge: As tolerated Stand Alone Forms: Patient Portal Discharge page Care Plan Goals: manage htn and dm Health Concerns: dm and htn Plan of Treatment: restart meds, follow up with pcp Assessment: see above
--- NOTE | 2022-07-22 12:43 | MHC.CM.PN ---
Pt medically cleared for D/C back home today, pts to transport.
--- NOTE | 2022-07-22 14:10 | MHC.CM.PN ---
This CM spoke with pt requesting help finding a PCP and making an appointment, CM training and development assistant able to make an appointment for pt next week at [facility]. Pt also brought it to this CM's attention that the previous HCP had her husbands name misspelled, this CM printed out new HCP and assisted pt in filling out a new one. New HCP uploaded into [facility].
== END 2022-07-22 13:00 | disposition home or self-care (01) | DRG 305 ==
LOC: HO.ED 18:25 → HO.EDOVER 20:05 → HO.IMC 07-21 15:58
PROVIDERS: Student in an Organized Health Care Education/Training Program; Admitting Provider Physician Assistant; Emergency Provider Student in an Organized Health Care Education/Training Program; Visit Provider Internal Medicine
DX: I16.1 Hypertensive emergency (principal); I67.4 Hypertensive encephalopathy; I10 Essential (primary) hypertension; E11.65 Type 2 diabetes mellitus with hyperglycemia; J20.8 Acute bronchitis due to other specified organisms; Z91.148 Patient's other noncompliance with medication regimen for other reason; Z88.0 Allergy status to penicillin; Z88.2 Allergy status to sulfonamides; Z79.4 Long term (current) use of insulin; Z79.899 Other long term (current) drug therapy
CPT/HCPCS: 36415; 70496; 70498; 80048; 80053; 80307; 81001; 82009; 82947; 83036; 84484; 85025; 85610; 87086; 93005; 99222; 99285; J0696; Q9967